=== PATIENT | male | born 1975 | race Caucasian/White ===

== ENCOUNTER → 2023-09-10 10:17 | Outpatient (BNVA) | payer OTHER, SELFPAY | PROVIDERS: Referring Provider Emergency Medicine Emergency Medical Services; Visit Provider Surgery | DX: Z12.11 Encounter for screening for malignant neoplasm of colon (principal) | CPT/HCPCS: 99203 ==

== ENCOUNTER → 2024-01-03 10:56 | Outpatient (BNVA) | payer OTHER, SELFPAY | PROVIDERS: PCP Emergency Medicine Emergency Medical Services; Visit Provider Internal Medicine | DX: E21.3 Hyperparathyroidism, unspecified (principal); E21.0 Primary hyperparathyroidism | CPT/HCPCS: 36415; 82310; 83970; 99204 ==

== ENCOUNTER → 2024-07-04 10:45 | Outpatient (BNVA) | payer OTHER, SELFPAY | PROVIDERS: PCP Emergency Medicine Emergency Medical Services; Visit Provider Internal Medicine | DX: E21.0 Primary hyperparathyroidism (principal) | CPT/HCPCS: 99204 ==

== ENCOUNTER → 2024-12-17 08:36 | Outpatient (BNVA) | payer OTHER, SELFPAY | PROVIDERS: PCP Emergency Medicine Emergency Medical Services; Visit Provider Surgery | DX: Z12.11 Encounter for screening for malignant neoplasm of colon (principal) | CPT/HCPCS: 99214 ==